=== PATIENT | female | born 1940 | race Caucasian/White ===

== ENCOUNTER 2021-08-19 13:57 | Inpatient (IN) | payer MEDICARE, SELFPAY ==
--- NOTE | 2021-08-19 14:21 | ECG_ITS ---
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
--- NOTE | 2021-08-19 14:21 | XRR_ITS ---
PROCEDURE INFORMATION: Exam: XR Chest Exam date and time: 08/19/2021 2:21 PM Age: 81 years old Clinical indication: Dyspnea TECHNIQUE: Imaging protocol: XR of the chest. Views: 1 view. COMPARISON: No relevant prior studies available. FINDINGS: Lungs: There is complete opacification of the left hemithorax. There is tracheal deviation to the left. The right lung is clear. Pleural spaces: Unremarkable. No pleural effusion. No pneumothorax. Heart/Mediastinum: Unremarkable. No cardiomegaly. Bones/joints: Unremarkable. XR/XR chest 1V portable [id number] IMPRESSION: There is complete opacification of the left hemithorax with tracheal deviation to the left.If there is desire for further evaluation, a chest CT scan could be performed. Radiation Dose CTDIVOL = (mGy): DLP = (mGy-cm)
[2021-08-19 14:23] VITALS: BP 150/70; PULSE 119; RESP 24; TEMP 37; O2SAT 89; BMI 14.6
--- NOTE | 2021-08-19 14:47 | CTR_ITS ---
PROCEDURE INFORMATION: Exam: CTA Chest With Contrast Exam date and time: 08/19/2021 2:47 PM Age: 81 years old Clinical indication: Shortness of breath; Additional info: Complete R side opacification. SOB x 1 month TECHNIQUE: Imaging protocol: Computed tomographic angiography of the chest with contrast. 3D rendering (Not supervised by radiologist): MIP and/or 3D reconstructed images were created by the technologist. Radiation optimization: All CT scans at this facility use at least one of these dose optimization techniques: automated exposure control; mA and/or kV adjustment per patient size (includes targeted exams where dose is matched to clinical indication); or iterative reconstruction. Contrast material: OMNI 350; Contrast volume: 61 ml; Contrast route: INTRAVENOUS (IV); COMPARISON: CR XR chest 1V portable [id number] 08/19/2021 2:26 PM RADIATION DOSE METRICS: Total DLP (mGy-cm): 289.53 FINDINGS: Pulmonary arteries: Normal. No pulmonary emboli. Aorta: Unremarkable. No aortic aneurysm. No aortic dissection. Lungs: There is complete opacification of the left upper, lingular and lower lobe bronchi. There is complete consolidation of the left upper, lower and lingular lobes of the lung. No mass or significant consolidation in the right lung. There is lung emphysema. Pleural spaces: There is large left pleural effusion. Heart: Unremarkable. No cardiomegaly. No pericardial effusion. Lymph nodes: Unremarkable. No enlarged lymph nodes. Bones/joints: Unremarkable. No acute fracture. Soft tissues: Unremarkable. CT/CT angio chest PE protcl [id number] IMPRESSION: There is opacification of the left lobe bronchi and complete left lung consolidation. Differential considerations would include malignancy with postobstructive pneumonitis. Aspiration would also be a consideration. Bronchoscopy may be of benefit. There is no evidence for a pulmonary artery embolus. Radiation Dose CTDIVOL = (mGy): DLP = 289.53 (mGy-cm)
--- NOTE | 2021-08-19 14:55 | PC.PHAR ---
pt states she takes no rx or otc medications-no meds pull up on ext med history
--- NOTE | 2021-08-19 15:07 | W.ED.GENADLT ---
HPI - General Adult General: Chief complaint: Shortness of Breath/Dyspnea Stated complaint: CHRONIC COUGH Time Seen by Provider: 08/19/21 14:46 History of Present Illness: HPI narrative: Patient is a 81-year-old female with history of chronic cough who presents the emergency room with worsening cough symptoms chills and dyspnea. Patient says that symptom has been going on for the last 2 to 3 weeks. Patient denies any difficulty eating. Since then, patient has noticed increasing shortness of breath decided come to the emergency room for eval. Patient denies any chest pain, shortness breath, COPD/asthma, history of smoking, abdominal complaints complaints at this time. Onset: 2 weeks ago Duration: 2 weeks Location:home Severity:omderate Review of Systems Narrative: Constitutional: No fever, +chills. HEENT: No vision changes CV: No chest pain, no palpitations PULM: +cough, +dyspnea. GI: No abdominal pain, no N/V/D. : No dysuria MSKEL: No muscle pain SKIN: No new rashes, no lesions. NEURO: No headache, no focal weakness. 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?re's disease Uterine cancer Surgical History H/O: hysterectomy Family History Other Cancer Social History Smoking and tobacco status: current every day smoker cigarettes [ Other cigarette details: Smokes 2 packs since 20 years of age ] Alcohol intake: former Housing: Assisted Living Facility Female Reproductive History: Date of last menstrual period: 01/23/21 Physical Exam Narrative: EXAM NARRATIVE: Head: Atraumatic Eyes: PERRL, conjunctiva without injection ENT: Mucous membrane moist NECK: Supple, ROM intact LUNGS: +Decreased breath sounds L side CV: RRR ABDOMEN: Soft, nontender in all quadrants EXTREMITY: Normal ROM SKIN: No rash or erythema NEURO: Awake and alert, no focal motor deficits PSYCH: Normal mood and affect Course Vital Signs: Vital signs: Vital Signs Temperature 97.5 F L 08/21/21 15:33 Pulse Rate 90 08/21/21 15:33 Respiratory Rate 16 08/21/21 15:33 Blood Pressure 130/65 08/21/21 15:33 Pulse Oximetry 97 08/21/21 15:33 MDM - General Adult MDM Narrative: Medical decision making narrative: 81-year-old female presents emergency room with chronic cough x2 weeks in the setting of worsening cough-like symptoms chills and dyspnea. On exam, patient has decreased breath on the left side. Patient is noted to be tachycardic to the 119. Afebrile today, noted satting 89% on room air. X-ray chest showed complete opacification of the L side. White count of 12 today. Patient received ceftriaxone, azithromycin and clindamycin for coverage of CAP versus aspiration pneumonia. CTA pending at this time. Patient will need bronchoscopy. PT/PTT and INR ordered. Patient will be kept n.p.o. Disposition: Admission Lab Data: Labs: Lab Results 08/19/21 08/19/21 08/19/21 15:10 15:10 15:10 WBC 12.9 10^3/uL H 10 ^3/uL (4.0-10.0) RBC 3.37 10^6/uL L 10 ^6/uL (4.1-5.3) Hgb 9.8 g/dL L g/dL (11.5-15.3) Hct 31.7 % L % (37.0-47.0) MCV 94.1 fl fl (81-99) MCH 29.1 pg pg (28.0-34.0) MCHC 30.9 g/dL g/dL (30.0-36.0) RDW 25.3 % H % (12.1-15.1) Plt Count 604 10^3/cmm H 10 ^3/cmm (130-400) MPV 8.5 fL fL (7.4-10.4) Neut % (Auto) 90.0 % % Lymph % (Auto) 3.3 % % Whitman % (Auto) 5.6 % % Eos % (Auto) 0.1 % % Baso % (Auto) 0.5 % % Neut # (Auto) 11.63 10^3/uL H 1 0^3/uL (1.8-7.7) Lymph # (Auto) 0.4 10^3/uL L 10^ 3/uL (0.8-4.8) Whitman # (Auto) 0.7 10^3/uL 10^3/ uL (0.2-0.9) Eos # (Auto) 0.0 10^3/uL 10^3/ uL (0.0-0.8) Baso # (Auto) 0.1 10^3/uL 10^3/ uL (0.0-0.1) Nucleated RBC % (a uto) 0 % % Nucleated RBCs # 0.0 /100WBC /100W BC PT INR APTT Sodium Cancelled Potassium Cancelled Chloride Cancelled Carbon Dioxide Cancelled Anion Gap Cancelled BUN Cancelled Creatinine Cancelled GFR Calculation Cancelled Glucose Cancelled Calculated Osmolal ity Cancelled Calcium Cancelled Lactate Dehydrogen ase Troponin T Baselin e Cancelled C-Reactive Protein NT-Pro-B Natriuret Pep Cancelled Procalcitonin 08/19/21 08/19/21 08/19/21 15:10 15:45 15:45 WBC RBC Hgb Hct MCV MCH MCHC RDW Plt Count MPV Neut % (Auto) Lymph % (Auto) Whitman % (Auto) Eos % (Auto) Baso % (Auto) Neut # (Auto) Lymph # (Auto) Whitman # (Auto) Eos # (Auto) Baso # (Auto) Nucleated RBC % (a uto) Nucleated RBCs # PT Cancelled 15.30 SECONDS H S ECONDS (12.1-14.9) INR Cancelled 1.18 (0.8-1.2) APTT Cancelled 44.5 SECONDS H SE CONDS (23.9-36.7) Sodium Potassium Chloride Carbon Dioxide Anion Gap BUN Creatinine GFR Calculation Glucose Calculated Osmolal ity Calcium Lactate Dehydrogen ase Troponin T Baselin e 13 ng/L H ng/L (0-10) C-Reactive Protein NT-Pro-B Natriuret Pep Procalcitonin 08/19/21 08/19/21 08/19/21 15:45 15:45 15:45 WBC RBC Hgb Hct MCV MCH MCHC RDW Plt Count MPV Neut % (Auto) Lymph % (Auto) Whitman % (Auto) Eos % (Auto) Baso % (Auto) Neut # (Auto) Lymph # (Auto) Whitman # (Auto) Eos # (Auto) Baso # (Auto) Nucleated RBC % (a uto) Nucleated RBCs # PT INR APTT Sodium 132 mmol/L L mmol /L (136-145) Potassium 3.7 mmol/L mmol/L (3.5-5.1) Chloride 95 mmol/L L mmol/ L (98-107) Carbon Dioxide 27 mmol/L mmol/L (22-29) Anion Gap 13.7 (5-19) BUN 9 mg/dL mg/dL (8-23) Creatinine 0.6 mg/dL mg/dL (0.5-0.9) GFR Calculation Not Reportable Glucose 129 mg/dL H mg/dL (65-115) Calculated Osmolal ity 274 mOsm/kg L mOs m/kg (285-295) Calcium 8.6 mg/dL mg/dL (8.5-10.5) Lactate Dehydrogen ase 377 U/L H U/L (135-214) Troponin T Baselin e C-Reactive Protein 124.7 mg/L H mg/L (0.0-4.9) NT-Pro-B Natriuret Pep 2060 pg/mL H pg/m L (0-450) Procalcitonin 0.17 ng/mL ng/mL (0-0.5) Imaging Data^: Other Imaging: Radiologist's impression: [address] [id number] ReportSigned Patient: Abrahan Khan #: [id number]: 1940cct#:[id number]/Sex: 81 / FADM Date: 08/19/21Loc: ERRoom/Bed:Attending Dr: Ordering Provider/Ordering MD: Bobby Vázquez MD Date of Service: 08/19/21 Procedure(s): XR chest 1V portable [id number] Accession Number(s): [id number] Report Number: [id number] PROCEDURE INFORMATION: Exam: XR Chest Exam date and time: 08/19/2021 2:21 PM Age: 81 years old Clinical indication: Dyspnea TECHNIQUE: Imaging protocol: XR of the chest. Views: 1 view. COMPARISON: No relevant prior studies available. FINDINGS: Lungs: There is complete opacification of the left hemithorax. There is tracheal deviation to the left. The right lung is clear. Pleural spaces: Unremarkable. No pleural effusion. No pneumothorax. Heart/Mediastinum: Unremarkable. No cardiomegaly. Bones/joints: Unremarkable. XR/XR chest 1V portable [id number] IMPRESSION: There is complete opacification of the left hemithorax with tracheal deviation to the left.If there is desire for further evaluation, a chest CT scan could be performed. Radiation Dose CTDIVOL = (mGy): DLP = (mGy-cm) Dictated By:Rubens Pedraza MDSigned By:Rubens Pedraza MDSigned Date/Time:08/19/21 1521DD/ 1421 [facility] [place] [id number] Scan ReportSigned Patient: Abrahan Khan #: [id number]: 1940cct#:[id number]/Sex: 81 / FADM Date: 08/19/21Loc: ERRoom/Bed:Attending Dr: Ordering Provider/Ordering MD: Bobby Vázquez MD Date of Service: 08/19/21 Procedure(s): CT angio chest PE protcl [id number] Accession Number(s): [id number] Report Number: [id number] PROCEDURE INFORMATION: Exam: CTA Chest With Contrast Exam date and time: 08/19/2021 2:47 PM Age: 81 years old Clinical indication: Shortness of breath; Additional info: Complete R side opacification. SOB x 1 month TECHNIQUE: Imaging protocol: Computed tomographic angiography of the chest with contrast. 3D rendering (Not supervised by radiologist): MIP and/or 3D reconstructed images were created by the technologist. Radiation optimization: All CT scans at this facility use at least one of these dose optimization techniques: automated exposure control; mA and/or kV adjustment per patient size (includes targeted exams where dose is matched to clinical indication); or iterative reconstruction. Contrast material: OMNI 350; Contrast volume: 61 ml; Contrast route: INTRAVENOUS (IV); COMPARISON: CR XR chest 1V portable [id number] 08/19/2021 2:26 PM RADIATION DOSE METRICS: Total DLP (mGy-cm): 289.53 FINDINGS: Pulmonary arteries: Normal. No pulmonary emboli. Aorta: Unremarkable. No aortic aneurysm. No aortic dissection. Lungs: There is complete opacification of the left upper, lingular and lower lobe bronchi. There is complete consolidation of the left upper, lower and lingular lobes of the lung. No mass or significant consolidation in the right lung. There is lung emphysema. Pleural spaces: There is large left pleural effusion. Heart: Unremarkable. No cardiomegaly. No pericardial effusion. Lymph nodes: Unremarkable. No enlarged lymph nodes. Bones/joints: Unremarkable. No acute fracture. Soft tissues: Unremarkable. CT/CT angio chest PE protcl [id number] IMPRESSION: There is opacification of the left lobe bronchi and complete left lung consolidation. Differential considerations would include malignancy with postobstructive pneumonitis. Aspiration would also be a consideration. Bronchoscopy may be of benefit. There is no evidence for a pulmonary artery embolus. Radiation Dose CTDIVOL = (mGy): DLP = 289.53 (mGy-cm) Dictated By:Rubens Pedraza MDSigned By:Rubens Pedraza MDSigned Date/Time:08/19/21 1746DD/ 1447 Discharge Plan Discharge Patient Disposition: Admitted As Inpatient Admit Provider: Denise Callaway Clinical Impression: Acute dyspnea, Cough, Opacity of lung on imaging study, Aspiration pneumonia Condition: Stable Discharge Diet: Regular Discharge Activity: Increase activity as tolerated Coding Level of Care Code ED [employer] Specialist for Mai Diaz
[2021-08-19 15:21] LABS: Basophils # 0.1 10^3/uL (0.0-0.1); Basophils % 0.5 %; Eosinophils % 0.1 %; Hematocrit 31.7 % (37.0-47.0); Hemoglobin 9.8 g/dL (11.5-15.3); Lymphocytes # 0.4 10^3/uL (0.8-4.8); Lymphocytes % 3.3 %; Mean Corpuscular HGB Conc 30.9 g/dL (30.0-36.0); Mean Corpuscular Hemoglobin 29.1 pg (28.0-34.0); Mean Corpuscular Volume 94.1 fl (81-99); Mean Platelet Volume 8.5 fL (7.4-10.4); Monocytes # 0.7 10^3/uL (0.2-0.9); Monocytes % 5.6 %; Neutrophils # 11.63 10^3/uL (1.8-7.7); Nucleated Red Blood Cells % 0 %; Platelet Count 604 10^3/cmm (130-400); Red Blood Count 3.37 10^6/uL (4.1-5.3); Red Cell Distribution Width 25.3 % (12.1-15.1); White Blood Count 12.9 10^3/uL (4.0-10.0)
[2021-08-19] MEDS: azithromycin 250 mg Tablet 500 MG PO (15:47)
[2021-08-19] MEDS: clindamycin 600 MG/50 ML PREMIX 100 MG IV (15:48)
[2021-08-19] MEDS: sodium chloride 0.9% 250 ML IV (15:48)
[2021-08-19 15:50] VITALS: BP 124/59; PULSE 110; O2SAT 92
[2021-08-19 16:06] LABS: INR 1.18 (0.8-1.2)
[2021-08-19 16:07] LABS: Partial Thromboplastin Time 44.5 SECONDS (23.9-36.7)
[2021-08-19 16:26] LABS: Troponin(5th) Baseline 13 ng/L (0-10)
--- NOTE | 2021-08-19 16:26 | PM.HP ---
Providers/Chief Complaint Chief Complaint: CHRONIC COUGH History of Present Illness Kandis Khan is a 81 year old female with no previous known medical history presented today with chief complaint of worsening shortness of breath. Patient is stating that roughly around 1 month ago she had an episode when she choked on cornbread and thinks she probably aspirated some part of it and was able to cough up some. (She touched she was about to , couldn't dial 911) since then her shortness of breath has been getting worse, she has not noticed any fever, she has not noticed any chest pain, diarrhea or vomiting. She is endorsing nausea, weight loss and denying night sweats. Today she presented from [facility] assisted living when her shortness of breath got worse. In the ER she was diagnosed with total left-sided lung opacification with tracheal deviation to the same side consistent with atelectasis, CTA rule out PE, concern for postobstructive pneumonia, started broad-spectrum antibiotics, she received clindamycin ceftriaxone and azithromycin in the ER currently requiring 2 to 3 L of nasal cannula to keep her O2 saturation above 90%. At the time my evaluation she has mild conversational dyspnea otherwise very pleasant and cooperative during my evaluation, she seemed calm, was laying in right lateral position. Of note, she has been smoking 2 packs of cigarettes since she was 20 years of age, endorsing family history of cancer, her twin sister of cancer as well she is not sure about the etiology of cancer. Review of Systems Const: Reports: chills, body aches, change in appetite, change in weight, fatigue and malaise Eyes: Denies: change in vision ENMT: Denies: throat pain Card: Reports: dyspnea on exertion; Denies: chest pain Resp: Reports: dyspnea, non-productive cough and wheezing GI: Denies: abdominal pain : Denies: flank pain Musc: Denies: neck pain Skin/Breast: Denies: rash Neuro: Denies: headache(s) Psych: Denies: anxiety Endo: Denies: polyuria Reynaldo/Lymph: Denies: easy bruising All/Imm: Denies: urticaria Medications/Allergies Home Medications Medication Instructions Recorded Confirmed Last Taken Type No Known Home Medications 08/19/21 08/19/21 Unknown History Allergies Allergy/AdvReac Type Severity Reaction Status Date / Time No Known Allergies Allergy Verified 08/19/21 14:56 PFSH Acute PFSH: Medical History M?ni?re's disease Uterine cancer Surgical History H/O: hysterectomy Family History Other Cancer Social History Smoking and tobacco status: current every day smoker cigarettes [ Other cigarette details: Smokes 2 packs since 20 years of age ] Alcohol intake: former Substance/Drug Use: never Housing: Assisted Living Facility Female Reproductive History: Date of last menstrual period: 01/23/21 Vitals/I&O/Wt Last Vital Signs Temp 98.6 F 08/19/21 14:23 Pulse 110 H 08/19/21 15:50 Resp 24 H 08/19/21 14:23 BP 124/59 08/19/21 15:50 Pulse Ox 92 08/19/21 15:50 Weight last 48 hrs Weight 36.287 kg Physical Exam Narrative: EXAM NARRATIVE: elderly female cooperative and pleasant Saturating well on 3 to nasal cannula Absent left-sided breath sounds, adequate air flow on right side No active wheezing or rhonchi She is laying in right lateral position digital clubbing noted S1, S2 sinus tachycardia Abdomen soft Lower symmetry no edema non focal neuro exam No joint swelling or cellulitis Data : 08/19/21 15:10 08/19/21 15:45 A&P Assessment and plan (1) Acute dyspnea: Status: Acute (2) Cough: Status: Acute (3) Opacity of lung on imaging study: Status: Acute Additional A&P Information Acute hypoxic respiratory failure Extensive smoking history Smoking 2 packs of cigarettes since 20 years of age Digital clubbing positive Twin sister of cancer Atelectasis of left lung, rule out postobstructive pneumonia, rule out cancer Bronchoscopy in the morning N.p.o. after midnight Start vancomycin Zosyn and Levaquin with double antipseudomonal coverage Patient is endorsing weight loss with worsening shortness of breath DNR/DNI N.p.o. after midnight DVT prophylaxis SCDs, start anticoagulating agent after the procedure Dr. Aguilar consulted Attestations Medical Necessity Statement*: Anticipating more than 2 midnights in the hospital Time Spent in Patient Care: Greater than 35 minutes Coding Level of Care Code Acute Investigator Fraud for Mai Fwd Diagnoses Acute dyspnea R06.00 Cough R05.9 Opacity of lung on imaging study R91.8
[2021-08-19 16:34] LABS: Anion Gap 13.7 (5-19); Blood Urea Nitrogen 9 mg/dL (8-23); Calcium 8.6 mg/dL (8.5-10.5); Carbon Dioxide 27 mmol/L (22-29); Chloride 95 mmol/L (98-107); Creatinine Clr Calc Pharmacy 32.6646; Glucose 129 mg/dL (65-115); NT Pro B Type Natriuretic Pept 2060 pg/mL (0-450); Osmolality Calculated 274 mOsm/kg (285-295); Potassium 3.7 mmol/L (3.5-5.1); Sodium 132 mmol/L (136-145)
[2021-08-19 17:04] LABS: Procalcitonin 0.17 ng/mL (0-0.5)
[2021-08-19] MEDS: iohexol 350 mg/mL 100 mL Btl IV (17:07)
[2021-08-19] MEDS: cefTRIAXone 1,000 MG in sodium chloride 0.9% (plus) 50 ML 100 MG IV (17:47)
[2021-08-19 18:29] VITALS: BP 108/48; PULSE 95; RESP 17; O2SAT 93
[2021-08-19 20:41] LABS: C Reactive Protein 124.7 mg/L (0.0-4.9); Lactate Dehydrogenase 377 U/L (135-214)
[2021-08-19 21:00] VITALS: BP 133/70; PULSE 98; TEMP 36.8; O2SAT 95
--- NOTE | 2021-08-19 22:33 | PC.PHAR ---
Pharmacokinetic dosing service Date: 08/19/21 Time: 2232 Objective: Patient: Kandis Khan Floor: 253-2 Age: 81 yo Serum creatinine: 0.6 mg/dL Height: 62.0 Inches Weight (kg): 36.287 Diagnosis: Relevant medical/social history: Cultures and sensitivities: Other labs: Assessment: IBW (kg): 50.10 Dosing wt(kg): 36.287 Estimated Creatinine clearance (ml/min): 43.6 CRCL method: Cockcroft and Gault using ibw(default). Drug selected: Vancomycin Loading dose (mg): 0 Vd (liters): 32.7 (factor used: 0.9 L/kg) Benny (hr-1): 0.041 Half life (hrs): 16.91 Recommended dose: 750 mg Interval: 24 hrs Infusion time (hrs): 1.5 Predicted peak (mcg/mL): 35.5 Predicted trough (mcg/mL): 14.11 Total body weight is being used for vancomycin dosing. Renal function is stable [ ] /unstable [ ] Recommendations: Give Vancomycin 750 mg q 24 hrs with an expected Cpeak of 35.5 mcg/ml and an expected Ctrough of 14.11 mcg/ml Renal dosing of other antibiotics (review renal dosing of other medications and list guidelines here): Thank you for the consult, will continue to follow. Signature: Padmini Harrison [facility]
[2021-08-19] MEDS: vancomycin 750 MG in sodium chloride 0.9% 250 ML 250 MG IV (22:51)
[2021-08-20] VITALS (21 sets, daily range): BP systolic 95–127; BP diastolic 37–64; PULSE 79–100; RESP 16–28; TEMP 36.4–37.7; O2SAT 92–100
[2021-08-20] MEDS: piperacillin-tazobactam 3.375 GM in sodium chloride 0.9% (plus) 50 ML IV ×3 (00:45→17:00)
[2021-08-20 06:13] LABS: Basophils % 0.1 %; Hematocrit 26.9 % (37.0-47.0); Hemoglobin 8.4 g/dL (11.5-15.3); Lymphocytes # 0.3 10^3/uL (0.8-4.8); Mean Corpuscular HGB Conc 31.2 g/dL (30.0-36.0); Mean Corpuscular Volume 86.5 fl (81-99); Mean Platelet Volume 8.2 fL (7.4-10.4); Monocytes # 0.6 10^3/uL (0.2-0.9); Monocytes % 3.4 %; Neutrophils # 15.29 10^3/uL (1.8-7.7); Neutrophils % 93.6 %; Nucleated Red Blood Cells % 0 %; Platelet Count 530 10^3/cmm (130-400); Red Blood Count 3.11 10^6/uL (4.1-5.3); Red Cell Distribution Width 17.2 % (12.1-15.1); White Blood Count 16.3 10^3/uL (4.0-10.0)
[2021-08-20 06:35] LABS: Alanine Aminotransferase < 5 U/L (0-33); Albumin Level 2.7 g/dL (3.5-5.2); Alkaline Phosphatase 134 IU/L (35-105); Anion Gap 14.8 (5-19); Aspartate Amino Transferase 6 U/L (0-32); Blood Urea Nitrogen 7 mg/dL (8-23); Calcium 8.6 mg/dL (8.5-10.5); Carbon Dioxide 24 mmol/L (22-29); Chloride 98 mmol/L (98-107); Creatinine Clr Calc Pharmacy 32.6646; Globulin 3.3 g/dL (1.3-4.6); Glucose 151 mg/dL (65-115); Osmolality Calculated 277 mOsm/kg (285-295); Potassium 3.8 mmol/L (3.5-5.1); Sodium 133 mmol/L (136-145); Total Bilirubin 0.5 mg/dL (0.15-1.2)
[2021-08-20] MEDS: lactated ringers 1,000 ML 999 ML IV (07:55)
[2021-08-20] MEDS: levoFLOXacin 750 mg Tablet PO (07:56)
--- NOTE | 2021-08-20 08:36 | PM.CONSULT ---
Providers/Reason For Consult Consulting Physician/Specialty*: Pulmonary and critical care medicine Reason for Consult*: Left lung atelectasis Attending Physician: Denise Callaway MD History of Present Illness History of Present Illness Kandis Khan is a 81 year old female who is in extensive history of smoking. She is a current smoker smoking about a pack and a half a day. The patient presented to the hospital yesterday with worsening shortness of breath. The chest x-ray in the emergency department revealed complete atelectasis of the left lung. The patient underwent a CT angiogram which did not reveal any pulmonary embolism however the left lung atelectasis was confirmed. 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 The patient also has evidence of centrilobular emphysema. Is complaining of cough, minimal sputum production and occasional wheezing. The patient gives history of choking on cornbread approximately a month ago. The patient tells me since then she has not been feeling well. She has been suffering from low-grade fever, shortness of breath, loss of appetite. In the emergency department the patient required 2 L of oxygen. The patient reports no significant limitation of activity prior to this choking episode a month ago. Review of Systems Narrative: General: Low-grade fever, chills, loss of appetite, fatigue Skin: No rash HEENT: No nasal congestion, rhinitis, sinusitis Neck: There is no neck swelling, mass or swollen glands. Respiratory: Please see my HPI. Cardiovascular: No chest pain, shortness of breath with exertion Gastrointestinal: No abdominal pain, nausea, vomiting, melena Musculoskeletal: No joint pain or swelling Neurological: Patient is awake alert and oriented x3, no paralysis, gross motor function is normal. Psychiatric: No anxiety or depression. Meds/Allergies Home Medications and Allergies Home Medications Medication Instructions Recorded Confirmed Last Taken Type No Known Home Medications 08/19/21 08/19/21 Unknown History Allergies Allergy/AdvReac Type Severity Reaction Status Date / Time No Known Allergies Allergy Verified 08/19/21 14:56 Current Medications Current Medications Generic Name Dose Route Start Last Admin Trade Name Freq PRN Reason Stop Dose Admin Piperacillin Sod/Tazobactam 50 mls @ 12.5 mls/hr 08/20/21 00:30 08/20/21 07:55 Sod 3.375 gm/ Sodium Chloride IV 12.5 mls/hr Q8H NAVID Administration Protocol Vancomycin HCl 750 mg/ Sodium 250 mls @ 250 mls/hr 08/19/21 23:00 08/20/21 00:08 Chloride IV Infused Q24H NAVID Infusion Lactated Ringer's 1,000 mls @ 999 mls/hr 08/20/21 07:40 08/20/21 07:55 Lactated Ringers IV 08/20/21 08:40 999 mls/hr .Q1H1M ONE Administration Levofloxacin 750 mg 08/20/21 09:00 08/20/21 07:56 Levofloxacin 750 Mg Tablet PO 750 mg DAILY NAVID Administration Protocol Methylprednisolone Sodium Succinate 30 mg 08/19/21 22:00 08/20/21 07:56 Methylprednisolone Sod Succ 40 Mg/Ml Inj IVP 30 mg Q12H NAVID Administration PFSH Acute PFSH: Medical History M?ni?re's disease Uterine cancer Surgical History H/O: hysterectomy Family History Other Cancer Social History Smoking and tobacco status: current every day smoker cigarettes [ Other cigarette details: Smokes 2 packs since 20 years of age ] Alcohol intake: former Substance/Drug Use: never Housing: Assisted Living Facility Female Reproductive History: Date of last menstrual period: 01/23/21 Vitals/I&O/Wt Last Vital Signs Temp 98.6 F 08/20/21 04:00 Pulse 86 08/20/21 04:00 Resp 16 08/20/21 04:00 BP 104/48 08/20/21 08:06 Pulse Ox 100 08/20/21 04:00 08/19/21 08/20/21 08/20/21 22:59 06:59 14:59 Intake Total 350 / 350 300 / 650 Output Total 125 / 125 Balance 350 / 350 175 / 525 Weight last 48 hrs Weight 80 lb Physical Exam Narrative: EXAM NARRATIVE: General: Patient is awake alert and oriented, in no distress. Neck: No JVD Respiratory: Inspection: Reduced mobility of the left hemithorax Palpation: Trachea is mildly deviated to the left, reduced chest expansion on the left Percussion: Dullness to percussion on the left Auscultation: Very reduced breath sound in the left anterior hemithorax, no wheezing or rhonchi Cardiovascular: Regular rate and rhythm, S1-S2 present, no murmur, no peripheral edema. Abdomen: Soft, nontender, nondistended, positive bowel sound Musculoskeletal: No obvious joint deformity Skin: No rash Neuro: Mental status is normal, no gross cranial nerve deficit, normal motor and coordination. Data Other Data: Attestation for Other Data: I personally reviewed and interpreted the following: Other data: I reviewed the patient's laboratory microbiologic and radiologic data. The patient has leukocytosis, anemia. The chest radiology showed complete atelectasis of the left lung. A&P Assessment and plan (1) Atelectasis of left lung: The chest imaging revealed complete atelectasis of the left lung. This is likely secondary to retained aspirated material from a month ago. However, malignancy involving left mainstem bronchus cannot be excluded. The patient does have an extensive history of smoking and is an active smoker. The patient will undergo bronchoscopic evaluation this afternoon. Status: Acute (2) Acute respiratory failure with hypoxia: The patient is requiring 2 L of oxygen. She appears to be comfortable. I am hoping once the obstruction is relieved she will have significant improvement of her symptoms. Status: Acute (3) Aspiration pneumonia: Patient is broadly covered with antibiotic. If the obstruction can be resolved, the patient will likely be ready for discharge in the near future. 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
[2021-08-20] MEDS: ipratropium-albuterol 3 mL Neb INHALATION ×2 (10:00→20:45)
[2021-08-20] MEDS: acetylcysteine 200 mg/mL SDV 4 mL INHALATION (10:00)
--- NOTE | 2021-08-20 10:17 | PC.CHAP ---
Pastoral Care Encounter/Spiritual Assessment Type of Contact [] Declined sap bods developer visit [] Patient/Family/Request visit [] Outpatient visit [] Follow-up visit [] Physician referral [] Code/Alert [x] Routine visit [] Staff referral [] Actively dying [] Patient sleeping [] Family support [] [] Out of room [] Palliative care [] [] Receiving care in room [] Pre-surgical visit [] Trauma [] Long length of stay [] ICU visit [] Other: Relational/Emotional Strength [x] Patient feels connected with others/family/visitors/staff [] Distress [] Loneliness/isolation [] Abandonment Spirituality of Patient [x] Person of [place] [x] Attends [employer]ian of their [place] [] Believes in Prayer [] Reads Bible or Hoahaoism materials [] There are Spiritual issues to be addressed 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 [x] Prayer [] Active listening [] Non-anxious presence [] Spiritual/emotional support [] Crisis/trauma care [] Spiritual counseling [] Bereavement support [] Provided bereavement packet [] Provided Bible/devotional materials [] Provided toy/stuffed animal, coloring book to patient or family member [] Provided Communion [] Anointing/[place] [] Salvation [x] Completed spiritual assessment [] Other: Impact on Illness or Injury [] Angry [] Fearful [] Anxious [] Often cries [] Exhaustion [] Unable to work [] Unable to attend religious [] Unable to walk/stand [] Unable to read [] Unable to drive [] Unable to eat/drink [] Unable to sleep [] Unable to be with family [] Patient intubated [] Other: Summary Time spent with patient 10 min
[2021-08-20] MEDS: sodium chloride 0.9% 1,000 ML 30 ML IV (11:41)
--- NOTE | 2021-08-20 12:03 | P.ANESASSM_ITS ---
Documented by User: Carlos Boyd Jr, SAMPLE ROOM SUPERVISOR 08/20/21 12:08 Pre-Anesthetic Assessment Pre-Anesthetic Assessment: Height/Weight: Height 1.57 m Weight 36.287 kg Temp Pulse Resp BP Pulse Ox 97.7 F 88 20 H 117/64 94 08/20/21 10:58 08/20/21 10:58 08/20/21 10:58 08/20/21 10:58 08/20/21 10:58 Preop Diagnosis: Atelectasis of left lung Proposed Procedure: Operation Date: 08/20/21 11:45 Proposed Procedures p Bronchoscopy(Not Applicable) - Biplab MD Jeff Familial anesthetic complications: none Was Beta Fe taken within 24 hours: N/A Was Clonidine taken within 24 hours: N/A Last intake: Intake Last Liquid Date 08/19/21 Last Liquid Time 10:00 Last Solid Date 08/19/21 Last Solid Time 10:00 Last Intake: 12:04 Social: Social History: Tobacco Packs per day: 2 Pack years: 60+ Exam: Pre-Anes Outpt Exam: alert, oriented x 3, clear to auscultation bilaterally (diminshed Left) and regular rate & rhythm Airway: Submandibular: WNL Cervical ROM: WNL MP: 1 Dentition: False Pulmonary: Pulmonary: COPD, Cough, AREVALO and SOB Comments: SOB for 3 weeks since possible aspiration CV/HEM: CV/HEM: None reported : : None reported Hepatic: Hepatic: None reported GI: GI: None reported Metabolic: Metabolic: None reported Musc/skel: Musc/skel: None reported Neuropsych: Neuropsych: Syncope (near syncope) Anesthetic Plan: ASA status: 3 Anesthesia: General Risk of > 500 ml blood loss (7ml/kg in children): No Meds/Allergies Current Medications: Current Medications Generic Name Dose Route Start Last Admin Trade Name Freq PRN Reason Stop Dose Admin Acetylcysteine 200 mg 08/20/21 09:00 08/20/21 10:00 Acetylcysteine 2 00 Mg/Ml Sdv 4 Ml INHALATION 200 mg Q6H.RESPIRATORY S CH Administration Albuterol/Ipratrop ium 3 ml 08/19/21 20:57 08/20/21 10:00 Ipratropium-Albu terol 3 Ml Neb INHALATION 3 ml Q6H PRN Administration SHORTNESS OF ANDRA TH Piperacillin Sod/T azobactam 50 mls @ 12.5 mls /hr 08/20/21 00:30 08/20/21 07:55 Sod 3.375 gm/ So dium Chloride IV 12.5 mls/hr Q8H NAVID Administration Protocol Vancomycin HCl 750 mg/ Sodium 250 mls @ 250 mls /hr 08/19/21 23:00 08/20/21 00:08 Chloride IV Infused Q24H NAVID Infusion Sodium Chloride 1,000 mls @ 30 ml s/hr 08/20/21 11:15 08/20/21 11:41 Sodium Chloride 0.9% IV 08/21/21 11:14 30 mls/hr .Q24H NAVID Administration Levofloxacin 750 mg 08/20/21 09:00 08/20/21 07:56 Levofloxacin 750 Mg Tablet PO 750 mg DAILY NAVID Administration Protocol PFSH Anesthesia PFSH: Medical History M?ni?re's disease Uterine cancer Surgical History H/O: hysterectomy Family History Other Cancer Social History Smoking and tobacco status: current every day smoker cigarettes [ Other cigarette details: Smokes 2 packs since 20 years of age ] Alcohol intake: former Substance/Drug Use: never Housing: Assisted Living Facility Female Reproductive History: Date of last menstrual period: 01/23/21 Data Anesthesia CBC & Chem 7: 08/20/21 05:57 08/20/21 05:57 Other Labs: Laboratory Results - last 48 hr 08/19/21 08/19/21 08/19/21 15:10 15:10 15:10 WBC 12.9 H RBC 3.37 L Hgb 9.8 L Hct 31.7 L MCV 94.1 MCH 29.1 MCHC 30.9 RDW 25.3 H Plt Count 604 H MPV 8.5 Neut % (Auto) 90.0 Lymph % (Auto) 3.3 [place] % (Auto) 5.6 Eos % (Auto) 0.1 Baso % (Auto) 0.5 Neut # (Auto) 11.63 H Lymph # (Auto) 0.4 L [place] # (Auto) 0.7 Eos # (Auto) 0.0 Baso # (Auto) 0.1 Nucleated RBC % (auto) 0 Nucleated RBCs # 0.0 PT INR APTT Sodium Cancelled Potassium Cancelled Chloride Cancelled Carbon Dioxide Cancelled Anion Gap Cancelled BUN Cancelled Creatinine Cancelled GFR Calculation Cancelled Glucose Cancelled Calculated Osmolality Cancelled Calcium Cancelled Total Bilirubin AST ALT Alkaline Phosphatase Lactate Dehydrogenase Troponin T Baseline Cancelled C-Reactive Protein NT-Pro-B Natriuret Pep Cancelled Total Protein Albumin Globulin Procalcitonin 08/19/21 08/19/21 08/19/21 15:10 15:45 15:45 WBC RBC Hgb Hct MCV MCH MCHC RDW Plt Count MPV Neut % (Auto) Lymph % (Auto) [place] % (Auto) Eos % (Auto) Baso % (Auto) Neut # (Auto) Lymph # (Auto) [place] # (Auto) Eos # (Auto) Baso # (Auto) Nucleated RBC % (auto) Nucleated RBCs # PT Cancelled 15.30 H INR Cancelled 1.18 APTT Cancelled 44.5 H Sodium Potassium Chloride Carbon Dioxide Anion Gap BUN Creatinine GFR Calculation Glucose Calculated Osmolality Calcium Total Bilirubin AST ALT Alkaline Phosphatase Lactate Dehydrogenase Troponin T Baseline 13 H C-Reactive Protein NT-Pro-B Natriuret Pep Total Protein Albumin Globulin Procalcitonin 08/19/21 08/19/21 08/19/21 15:45 15:45 15:45 WBC RBC Hgb Hct MCV MCH MCHC RDW Plt Count MPV Neut % (Auto) Lymph % (Auto) [place] % (Auto) Eos % (Auto) Baso % (Auto) Neut # (Auto) Lymph # (Auto) [place] # (Auto) Eos # (Auto) Baso # (Auto) Nucleated RBC % (auto) Nucleated RBCs # PT INR APTT Sodium 132 L Potassium 3.7 Chloride 95 L Carbon Dioxide 27 Anion Gap 13.7 BUN 9 Creatinine 0.6 GFR Calculation Not Reportable Glucose 129 H Calculated Osmolality 274 L Calcium 8.6 Total Bilirubin AST ALT Alkaline Phosphatase Lactate Dehydrogenase 377 H Troponin T Baseline C-Reactive Protein 124.7 H NT-Pro-B Natriuret Pep 2060 H Total Protein Albumin Globulin Procalcitonin 0.17 08/20/21 08/20/21 05:57 05:57 WBC 16.3 H RBC 3.11 L Hgb 8.4 L Hct 26.9 L MCV 86.5 D MCH 27.0 L MCHC 31.2 RDW 17.2 H Plt Count 530 H MPV 8.2 Neut % (Auto) 93.6 Lymph % (Auto) 2.0 [place] % (Auto) 3.4 Eos % (Auto) 0.0 Baso % (Auto) 0.1 Neut # (Auto) 15.29 H Lymph # (Auto) 0.3 L [place] # (Auto) 0.6 Eos # (Auto) 0.0 Baso # (Auto) 0.0 Nucleated RBC % (auto) 0 Nucleated RBCs # 0.0 PT INR APTT Sodium 133 L Potassium 3.8 Chloride 98 Carbon Dioxide 24 Anion Gap 14.8 BUN 7 L Creatinine 0.6 GFR Calculation Not Reportable Glucose 151 H Calculated Osmolality 277 L Calcium 8.6 Total Bilirubin 0.5 AST 6 ALT < 5 Alkaline Phosphatase 134 H Lactate Dehydrogenase Troponin T Baseline C-Reactive Protein NT-Pro-B Natriuret Pep Total Protein 6.0 L Albumin 2.7 L Globulin 3.3 Procalcitonin Cardiac Studies: No Data to Display Documented by User: Tavo Brito 08/20/21 15:40 PFSH Anesthesia PFSH: Medical History M?ni?re's disease Uterine cancer Surgical History H/O: hysterectomy Family History Other Cancer Social History Smoking and tobacco status: current every day smoker cigarettes [ Other cigarette details: Smokes 2 packs since 20 years of age ] Alcohol intake: former Substance/Drug Use: never Housing: Assisted Living Facility Data Anesthesia CBC & Chem 7: 08/20/21 05:57 08/20/21 05:57 Cardiac Studies: No Data to Display
--- NOTE | 2021-08-20 14:33 | XR_ITS ---
WS: [id number] Portable AP semiupright chest, 08/20/2021 Clinical Data: post bronch/ebus Comparison: Portable chest, 08/19/2021. Findings: There is partial aeration of the left upper lobe. There is still opacification of the left lower pleural space. The shift of the heart and mediastinum from right to left has improved. Right t[place] ng remains clear. Monitor leads are on the chest wall. XR/XR chest 1V portable [id number] Impression: 1. Partial aeration of left upper lobe. 2. Continued opacification of left lower thorax. 3. Improvement of shift of the heart and mediastinum
--- NOTE | 2021-08-20 14:49 | PC.NURSE ---
pt was transferred to GI floor pt taken for procedure which started at 1235 meds for procedure were pulled for administration 1% lidocaine in 20ml and 2 applications of 2% lidocaine jelly per tube as ordered by Dr. Aguilar. during procedure which was to be a bronchoscopy then when a mass was discovered an EBUS was performed to stage the massin that procedure which started at 1340 2 additional tube of lidocaine jelly were administered. when trying to admin these meds it was discovered that somehow the pt was transferred back to the floor in the system and it would not let this nurse admin in the right place which was GI Lab floor
--- NOTE | 2021-08-20 15:21 | PM.OP ---
Operative Report Date of procedure: August 20, 2021 Pre-op Diagnosis: Atelectasis of left lung Post-op diagnosis: same Post-op Diagnosis: Bronchogenic cancer occluding left mainstem bronchus Brief History: This is a 81-year-old lady who presented to the hospital yesterday with worsening shortness of breath. The patient gives history of aspirating cornbread approximately a month ago. She is undergoing bronchoscopic evaluation for left mainstem bronchus occlusion. Procedure: Name of the procedure: Bronchoscopy with inspection of the airway, endobronchial cryobiopsy, endobronchial sound guided transbronchial needle aspiration of lymph nodes, cryocannulization and control of bleeding Indication: Left lung atelectasis Anesthesia: General anesthesia. Local anesthesia: The francisco in the right and left mainstem bronchi were anesthetized with 1% lidocaine, 5 mL. Description of the procedure: The procedure was explained to the patient and the consent was obtained. The patient was brought to the OR. The patient underwent endotracheal intubation for general anesthesia. Following induction of general anesthesia, the bronchoscope was advanced through the ET tube. The lower trachea appeared to be normal. The francisco was splayed. The francisco, the right and left mainstem bronchi are anesthetized with 1% lidocaine. In a systematic manner bilateral bronchial tree was then examined. An endobronchial lesion was seen occluding the entire left mainstem bronchus. There was complete occlusion of the bronchus and the bronchoscope could not be passed beyond the lesion. The bronchoscope was then introduced into the right mainstem bronchus. The right upper lobe, right middle lobe and right lower lobe bronchi were examined up to the third subsegmental level and no abnormalities were identified. Using the cryoprobe, cryo cannulization was performed by piecemeal removal of the endobronchial mass. At the end of the procedure the left upper lobe bronchus could be accessed with the bronchoscope. There was submucosal involvement with mucosal irregularity in the left upper lobe segmental bronchi including the lingular segment. The irregularity was also present in the left lower lobe bronchus as well as the segmental bronchi. I was able to pass the bronchoscope into the left lower lobe bronchus. The endobronchial ultrasound was introduced through the ET tube. Lymphadenopathy was noted in the subcarinal and left hilar lymph node area. The right-sided paratracheal and hilar lymph nodes are small. Fine-needle aspiration was performed from station 7 and station 10 L. Samples: 1. The endobronchial cryo biopsies were sent for histopathology. 2. The transbronchial needle aspiration of the aforementioned lymph node groups were sent for histopathology. Complications: There was mild bleeding which was controlled at the end of the procedure. Chest x-ray: Reveals opening up of the left upper lobe. No pneumothorax.
--- NOTE | 2021-08-20 15:41 | ANE.PACU2 ---
Inpatient post-anesthesia follow up: Airway intact: Yes Vital signs: Temperature 99.8 F Pulse Rate [Monito r] 119 Pulse Rate 81 Respiratory Rate 22 Blood Pressure [Ri ght Arm] 150/70 Blood Pressure 96/53 Pulse Oximetry 93 Oxygen Delivery Me thod Nasal Cannula Oxygen Flow Rate 4 Fraction of Inspir ed Oxygen Hydration adequate: Yes Nausea and vomiting: No Pain level: 2 Mental status: Baseline
--- NOTE | 2021-08-20 16:31 | PM.PN ---
Subjective Subjective: Interval history: status post bronchoscopy, endobronchial lesion most likely consistent with cancer, she is currently saturating well on 4 L nasal cannula I did talk with the number that was provided by Ms. Khan, she said we should call her daughter Melanie Ramos phone #[phone] When I call Melanie she told me that she is a good friend and not her biological daughter, I requested if she can provide me with Ms. Khan's brothers contact info name is Agustin Potter, she will call me back today Vitals/I&O/Wt Last Vital Signs Temp 97.8 F 08/20/21 15:10 Pulse 79 08/20/21 15:10 Resp 16 08/20/21 15:10 BP 107/60 08/20/21 15:10 Pulse Ox 94 08/20/21 15:10 08/20/21 08/20/21 08/20/21 06:59 14:59 22:59 Intake Total 300 / 650 2700 / 2700 50 / 2750 Output Total 125 / 125 105 / 105 Balance 175 / 525 2595 / 2595 50 / 2645 Weight last 48 hrs Weight 36.287 kg Physical Exam Narrative: EXAM NARRATIVE: Patient was laying comfortably diminished left-sided breath sounds Right-sided breath sounds without wheezing or rhonchi S1, S2 Emaciated Muscle mass loss Digital clubbing Abdomen soft nontender bowel sounds present No joint swelling Data : 08/20/21 05:57 08/20/21 05:57 A&P Assessment and plan (1) Atelectasis of left lung: Status: Acute (2) Acute respiratory failure with hypoxia: Status: Acute (3) Atelectasis: Status: Acute (4) Acute dyspnea: Status: Acute (5) Cough: Status: Acute (6) Opacity of lung on imaging study: Status: Acute (7) Aspiration pneumonia: Status: Acute (8) Endobronchial mass: Status: Acute Additional A&P Information Endobronchial lesion most likely consistent with lung cancer, follow-up with pathology, patient does not follow-up with any PCP on frequent basis, will try to arrange appropriate follow-up at the time of discharge, did try to update the service advocate contact that was given to me by the patient herself Currently saturating well on 4 L nasal cannula No active chest pain Patient states that she does not want to be resuscitated with chest compressions or intubation, Attestations Medical Necessity Statement*: continue medical management Time Spent in Patient Care: 16 - 35 minutes Coding Level of Care Code 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
[2021-08-20] MEDS: doxycycline 100 mg Tablet PO (17:12)
[2021-08-21] VITALS (8 sets, daily range): BP systolic 103–130; BP diastolic 48–65; PULSE 80–103; RESP 14–18; TEMP 36.4–36.9; O2SAT 84–97
[2021-08-21] MEDS: piperacillin-tazobactam 3.375 GM in sodium chloride 0.9% (plus) 50 ML IV ×2 (01:05→08:13)
[2021-08-21 05:24] LABS: Basophils % 0.2 %; Eosinophils % 0.1 %; Hematocrit 23.4 % (37.0-47.0); Hemoglobin 7.7 g/dL (11.5-15.3); Lymphocytes % 7.2 %; Mean Corpuscular HGB Conc 32.9 g/dL (30.0-36.0); Mean Corpuscular Hemoglobin 29.6 pg (28.0-34.0); Mean Platelet Volume 8.5 fL (7.4-10.4); Monocytes # 0.9 10^3/uL (0.2-0.9); Monocytes % 6.6 %; Neutrophils # 11.34 10^3/uL (1.8-7.7); Neutrophils % 85.4 %; Nucleated Red Blood Cells % 0 %; Platelet Count 530 10^3/cmm (130-400); Red Cell Distribution Width 17.4 % (12.1-15.1); White Blood Count 13.3 10^3/uL (4.0-10.0)
[2021-08-21 05:50] LABS: Anion Gap 13.6 (5-19); Blood Urea Nitrogen 15 mg/dL (8-23); Calcium 8.6 mg/dL (8.5-10.5); Carbon Dioxide 24 mmol/L (22-29); Chloride 101 mmol/L (98-107); Creatinine Clr Calc Pharmacy 32.6646; Glucose 102 mg/dL (65-115); Osmolality Calculated 281 mOsm/kg (285-295); Potassium 3.6 mmol/L (3.5-5.1); Sodium 135 mmol/L (136-145)
--- NOTE | 2021-08-21 07:00 | XR_ITS ---
WS: [id number] Portable AP upright chest, 08/21/2021 Clinical Data: post bronchoscopy Comparison: Portable chest 08/20/2021 Findings: There is opacity of the lower two thirds of the left pleural space which probably consists of atelectasis, effusion and possible pneumonia. There is partial aeration of the left upper lobe wit h left apical thickening unchanged. The right lung remains clear. The heart size is probably the same . XR/XR chest 1V portable [id number] Impression: 1. No change in opacification of the lower two thirds of the left pleural space . 2. No change in aeration of the left upper pleural space.
[2021-08-21] MEDS: doxycycline 100 mg Tablet PO (08:13)
[2021-08-21] MEDS: levoFLOXacin 750 mg Tablet PO (08:13)
[2021-08-21] MEDS: ipratropium-albuterol 3 mL Neb INHALATION (09:12)
--- NOTE | 2021-08-21 11:31 | PM.DCS ---
Discharge Providers Date of Admission: 08/19/21 15:58 Date of Discharge: August 21, 2021 Attending Provider at Admission: Denise Callaway MD Attending Provider at Discharge: Denise Callaway MD Diagnoses at Discharge Discharge Diagnosis (1) Atelectasis of left lung: Status: Acute (2) Acute respiratory failure with hypoxia: Status: Acute (3) Atelectasis: Status: Acute (4) Acute dyspnea: Status: Acute (5) Cough: Status: Acute (6) Opacity of lung on imaging study: Status: Acute (7) Aspiration pneumonia: Status: Acute (8) Endobronchial mass: Status: Acute Reason for Visit Reason for Visit: CHRONIC COUGH Hospital Course Hospital Course 81-year female who lives in senior assisted living in [place] presented to the hospital with chief complaint of worsening shortness of breath. Patient is stating that her symptoms started roughly a month ago when she aspirated on cornbread. She has been noticing low-grade fever, productive cough, significant weight loss and shortness of breath. She decided to come to the hospital when her shortness of breath worsened. In the ER she was diagnosed with complete opacification of left lung with atelectasis tracheal deviation to the same side. She was started on broad-spectrum antibiotics and steroids. CTA ruled out PE. Dr. 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 She is not keen to pursue further therapeutic options stating that she is old and losing weight, does not have enough family support. She wishes to stay DNR/DNI. (Might pursue comfort/hospice care) agreeable to follow-up with Dr. Aguilar within a week. She will be discharged with albuterol, doxycycline and Levaquin regimen. Patient does not want to use any opioids. I have informed Melanie [phone](her friend after getting permission from Ms. Khan). Ms. Khan is stating that her daughter is not able to take care of her she is struggling with alcohol abuse and not in good health. Physical Exam Narrative: EXAM NARRATIVE: Patient was sitting at the bedside saturating well on 3.5 L nasal cannula Right-sided breath sounds without wheezing or rhonchi, diminished left-sided breath sounds S1, S2 Emaciated Muscle mass loss Digital clubbing Abdomen soft nontender bowel sounds present No joint swelling Discharge Data Data Completed and Pending: Completed Studies During Hospitalization Category Date Time Status CT angio chest PE protcl [id number] Urge nt Cat Scan 08/19/21 14:47 Completed XR chest 1V carla ble [id number] Routine Exams 08/20/21 14:33 Completed XR chest 1V carla ble [id number] Routine Exams 08/21/21 07:00 Completed XR chest 1V carla ble [id number] Urgent Exams 08/19/21 14:21 Completed Pending at discharge Category Date Time Status Erythrocyte Sedim entation Rate Rout ine Lab 08/19/21 19:53 Received Hemoglobin and He matocrit Stat Lab 08/21/21 11:26 Ordered MRSA by PCR Stat Lab 08/20/21 16:56 Uncollected Miscellaneous Judy t Routine Lab 08/20/21 07:52 Received Sputum Culture an d Gram Stain Routi ne Lab 08/19/21 20:57 Uncollected Vancomycin Trough Timed Lab 08/21/21 22:00 Ordered Cytology [PTH] Ro utine Pth 08/21/21 09:47 Received Pathology: Surgic al [PTH] Routine Pth 08/20/21 14:09 Received Labs from last 24 hours 08/21/21 08/21/21 08/20/21 04:42 04:42 07:52 WBC 13.3 H RBC 2.60 L Hgb 7.7 L Hct 23.4 L MCV 90.0 MCH 29.6 MCHC 32.9 D RDW 17.4 H Plt Count 530 H MPV 8.5 Neut % (Auto) 85.4 Lymph % (Auto) 7.2 [place] % (Auto) 6.6 Eos % (Auto) 0.1 Baso % (Auto) 0.2 Neut # (Auto) 11.34 H Lymph # (Auto) 1.0 [place] # (Auto) 0.9 Eos # (Auto) 0.0 Baso # (Auto) 0.0 Nucleated RBC % (a uto) 0 Nucleated RBCs # 0.0 Sodium 135 L Potassium 3.6 Chloride 101 Carbon Dioxide 24 Anion Gap 13.6 BUN 15 Creatinine 0.7 GFR Calculation Not Reportable Glucose 102 Calculated Osmolal ity 281 L Calcium 8.6 Misc Test Referenc e Pending Vitals: Last Vital Signs Temp 98.4 F 08/21/21 08:00 Pulse 103 H 08/21/21 09:19 Resp 17 08/21/21 09:12 BP 125/50 08/21/21 08:00 Pulse Ox 91 08/21/21 09:12 Discharge Plan Discharge Patient Disposition: Home Condition: Stable Prescriptions: New doxycycline monohydrate 100 mg Tablet 100 mg PO BID 5 Days Qty: 10 RF: 0 levofloxacin 750 mg Tablet 750 mg PO DAILY 5 Days Qty: 5 RF: 0 albuterol sulfate 90 mcg/actuation HFA aerosol inhaler 2 inh inhalation Q6H Qty: 8.5 RF: 3 Discharge Orders: Discharge Order (Routine); Ordered 08/21/21 Ordered By: Denise Callaway Other Ambulatory Orders: DME: Oxygen (Order) Location: None Selected Ordered By: Denise Callaway Referrals: Sd Aguilar MD [Physician] - 7-10 days Discharge Diet: Regular Discharge Activity: Increase activity as tolerated Patient Instructions: Opioid Safety Discharge Attestations Time Spent in Discharge Care*: less than 30 min Quality Metrics Clinical Quality Measures During this hospital stay, did patient experience: None Coding Level of Care Code Acute Chg FW DC note Diagnoses Atelectasis of left lung J98.11 Acute respiratory failure with hypoxia J96.01 Atelectasis J98.11 Acute dyspnea R06.00 Cough R05.9 Opacity of lung on imaging study R91.8 Aspiration pneumonia J69.0 Endobronchial mass R91.8
--- NOTE | 2021-08-21 13:39 | P.PN_ITS ---
Subjective Subjective: Interval history: The patient was seen and examined. I had discussed the findings of the bronchoscopy yesterday. The frozen section biopsy was consistent with poorly differentiated cancer. The left mainstem bronchial occlusion was alleviated with cryocannulization. Chest x-ray this morning revealed increased aeration of the left upper lobe. The left lower lobe has still not opened up. There was submucosal infiltration of segmental bronchi in the left lower lobe which is likely causing ongoing atelectasis. I had an extensive discussion with the patient regarding goals of care. The patient does not want any chemoradiation therapy. At this point she would like to go home in the apartment complex where she lives. She would like oxygen supply at her place and if her symptoms get worse she would move to a long-term. Medications: Reviewed: Yes Vitals/I&O/Wt Last Vital Signs Temp 97.5 F L 08/21/21 11:52 Pulse 90 08/21/21 11:52 Resp 16 08/21/21 11:52 BP 130/65 08/21/21 11:52 Pulse Ox 84 L 08/21/21 11:54 08/20/21 08/21/21 08/21/21 22:59 06:59 14:59 Intake Total 340 / 3040 170 / 3210 1210 / 1210 Output Total 250 / 355 255 / 255 Balance 90 / 2685 170 / 2855 955 / 955 Weight last 48 hrs Weight 80 lb Physical Exam Narrative: EXAM NARRATIVE: General: Patient is awake alert and oriented, in no distress. Neck: No JVD Respiratory: Auscultation: Improved breath sound in the left upper lung anteriorly, reduced breath sound in the lower lung zone anteriorly and posteriorly Cardiovascular: Regular rate and rhythm, S1-S2 present, no murmur, no peripheral edema. Abdomen: Soft, nontender, nondistended, positive bowel sound Musculoskeletal: No obvious joint deformity, bilateral clubbing Skin: No rash Neuro: Mental status is normal, no gross cranial nerve deficit, normal motor and coordination. Data : 08/21/21 11:45 08/21/21 04:42 Attestation for Other Data: I personally reviewed and interpreted the following: Other data: I have reviewed the patient's laboratory, microbiologic and radiologic data. A&P Assessment and plan (1) Atelectasis of left lung: The atelectasis was secondary to infiltrative cancer occluding the left mainstem bronchus. The cryo cannulization had helped opening up the occlusion with improved aeration of the left upper lobe. Status: Acute (2) Acute respiratory failure with hypoxia: The patient is requiring 3 to 4 L of oxygen. Status: Acute (3) Lung cancer: The preliminary pathology report is consistent with poorly differentiated lung cancer. The patient had left hilar and subcarinal lymphadenopathy which was also sampled during the bronchoscopy procedure yesterday. The patient at this point does not want any further treatment. I had a detailed conversation with the patient regarding the plan of care in the future. The plan is for her to go back to her apartment complex in [place] where she lives. We will set up the oxygen concentrator there. We will contact the hospice team to discuss her care with her and if there is any worsening of her health the patient will move to a long-term which is close by. The patient does not need to follow-up with me as outpatient. Status: Acute Attestations Medical Necessity Statement*: Will defer to the primary team Coding Level of Care Code Acute Welcome Wagon Hostess for Mai Diaz Diagnoses Atelectasis of left lung J98.11 Acute respiratory failure with hypoxia J96.01 Lung cancer C34.90
[2021-08-21 16:48] LABS: Erythrocyte Sedimentation Rate 50 mm/hr (0-15)
[2021-08-27 06:45] LABS: Miscellaneous Test See Scanned Lab Rpt
--- NOTE | 2021-08-27 13:57 | PC.SOCIAL ---
racebook writer was trying to get transportation set up for patient to go to her appointments. called and spoke with patient and she is going to the residential so she won't need transportation to appointments. the patient feels very good about this and is glad she made this decision.
[2021-08-29 08:07] LABS: PD-L1 (Clone 22C3) by IHC BBPL See Report
== END 2021-08-21 16:35 | disposition home or self-care (01) | DRG 163 ==
LOC: ER 15:15 → MEDSURG 17:56
PROVIDERS: Internal Medicine Critical Care Medicine; Admitting Provider Internal Medicine; Emergency Provider Emergency Medicine; Visit Provider Internal Medicine
PROC: 0BJ08ZZ Inspection of Tracheobronchial Tree, Via Natural or Artificial Opening Endoscopic (ICD-10-PCS; CPT 31622; principal; 2021-08-20 11:45)
PROC: BB4BZZZ Ultrasonography of Pleura (ICD-10-PCS; 2021-08-20 11:45)
PROC: 0B578ZZ Destruction of Left Main Bronchus, Via Natural or Artificial Opening Endoscopic (ICD-10-PCS; 2021-08-20 11:45)
DX: C34.02 Malignant neoplasm of left main bronchus (principal); J69.0 Pneumonitis due to inhalation of food and vomit; J96.01 Acute respiratory failure with hypoxia; J98.11 Atelectasis; R59.0 Localized enlarged lymph nodes; R91.8 Other nonspecific abnormal finding of lung field; J43.2 Centrilobular emphysema; F17.210 Nicotine dependence, cigarettes, uncomplicated; D63.0 Anemia in neoplastic disease; D72.829 Elevated white blood cell count, unspecified; Z66 Do not resuscitate; Z85.42 Personal history of malignant neoplasm of other parts of uterus; Z90.710 Acquired absence of both cervix and uterus; Z80.9 Family history of malignant neoplasm, unspecified
CPT/HCPCS: 31625; 31635; 31641; 31645; 31652; 36415; 71045; 71275; 80048; 80053; 80500; 83615; 83880; 84145; 84484; 85014; 85018; 85025; 85610; 85651; 85730; 86140; 88112; 88271; 88275; 88305; 88331; 88342; 93005; 94640; 96365; 96366; 96367; 99285; J0696; J2370; J2543; J2704; J2920; J3370; J3490; J7030; J7050; J7608; Q0144; Q9967